=== PATIENT | female | born 1960 | race Caucasian/White ===

== ENCOUNTER 2018-08-06 20:22 | Emergency (ER) | payer SELFPAY ==
[~2018-08-06] VITALS: Ht 154.9 cm; Wt 81.6 kg
[2018-08-06 20:46] VITALS: BP 160/90
--- NOTE | 2018-08-06 20:48 | NUR ---
TO LOBBY A/W BED , AMBULATORY
--- NOTE | 2018-08-06 21:03 | NUR ---
PT RETURN FROM [facility] TO [facility]
--- NOTE | 2018-08-06 21:05 | NUR ---
PATIENT AMBULATED TO ER CHAIR C.
--- NOTE | 2018-08-06 21:08 | NUR ---
PATIENT IS A 57 Y/O FEMALE WHO PRESENTS TO THE ED C/O R ANKLE PAIN. PT STATES THAT SHE WAS WALKING AND TRIPPED OVER A BOLT X3 DAYS [employer]. PT REPORTS 5/10 ACHING R ANKLE PAIN THAT RADIATES UP THE R LEG. NOTED SWELLING, CMS INTACT, NO OBVIOUS TRAUMA/DEFORMITY. PT TOOK MOTRIN. PT DENIES CP, SOB, N/V/D. PT AWAKE AND ALERT, RR EVEN/UNLABORED. PT REPOSITIONED FOR COMFORT, BED IN LOWEST POSITION. ER PROVIDER NOTIFIED. WILL CONTINUE TO MONITOR.
[2018-08-06 21:37] VITALS: BP 152/82
--- NOTE | 2018-08-06 21:37 | NUR ---
Patient discharged with v/s stable. Written and verbal after care instructions given and explained. Patient alert, oriented and verbalized understanding of instructions. Ambulatory with steady gait. All questions addressed prior to discharge. ID band removed. Patient advised to follow up with PMD. Rx of ACETAMINOPHEN 500MG AND NAPROXEN 375MG given. Patient educated on indication of medication including possible reaction and side effects. Opportunity to ask questions provided and answered.
== END 2018-08-06 21:37 | disposition home or self-care (01) ==
LOC: MED 20:22
DX: S86.811A Strain of other muscle(s) and tendon(s) at lower leg level, right leg, initial encounter (principal); E11.9 Type 2 diabetes mellitus without complications; I10 Essential (primary) hypertension; W01.0XXA Fall on same level from slipping, tripping and stumbling without subsequent striking against object, initial encounter; Y93.89 Activity, other specified; Y92.89 Other specified places as the place of occurrence of the external cause; Y99.8 Other external cause status
CPT/HCPCS: 73610; 99283

== ENCOUNTER 2019-04-18 23:11 | Emergency (ER) | payer MEDICAID ==
[~2019-04-18] VITALS: Ht 154.9 cm; Wt 86.2 kg
[2019-04-18 23:12] VITALS: BP 187/99
--- NOTE | 2019-04-18 23:15 | NUR ---
TO LOBBY A/W BED AMBULATORY
--- NOTE | 2019-04-18 23:23 | NUR ---
EKG PERFORMED IN TRIAGE ROOM WITH FAMILY MEMBER PRESENT
--- NOTE | 2019-04-18 23:50 | NUR ---
PT AMBULATED TO BED #7
[2019-04-19] MEDS ORDERED: NITROGLYCERIN 0.4 MG TAB SL ONE
[2019-04-19] MEDS ORDERED: ASPIRIN 325 MG TAB PO ONE
--- NOTE | 2019-04-19 00:04 | NUR ---
BIBS C/O NEW ONSET OF DULL CHEST PAIN 6/10 BEGINNING THIS MORNING, PATIENT DENIES INJURY. SOB. LUNG SOUNDS CLEAR BILAT LOBES, NO ACCESSORY MUSCLE USE, PT RESP PATTERN WNL. PT REPORTS TO DRINK CAFFEINE DAILY. SMOKER, 10 CIGARETTES A DAY X 40 YEARS NO PMH NKA
--- NOTE | 2019-04-19 00:05 | NUR ---
XRAY AT BEDSIDE
[2019-04-19] MEDS ORDERED: ASPIRIN 81 MG TAB.CHEW PO ONE (00:10)
--- NOTE | 2019-04-19 00:10 | NUR ---
PER MD CHAN, VERBAL ORDER TO SWITCH ASP 325 ORAL TO ASP 324 CHEWABLE TAB.
--- NOTE | 2019-04-19 00:12 | NUR ---
PER DR CHAN, EKG RE ORDER WAS NOT NEEDED.
[2019-04-19 00:43] LABS: BASOPHILS # (AUTO) 0.1 K/uL (0.00-0.22); BASOPHILS % (AUTO) 1.1 % (0.0-2.0); EOSINOPHILS # (AUTO) 0.2 K/uL (0-0.4); EOSINOPHILS % (AUTO) 2.4 % (0.0-4.0); HEMATOCRIT 47.8 % (36-48); HEMOGLOBIN 16.2 g/dL (12.0-16.0); LYMPHOCYTES # (AUTO) 4.7 K/uL (2.5-16.5); LYMPHOCYTES % (AUTO) 44.9 % (20.5-51.1); MEAN CORPUSCULAR HEMOGLOBIN 30 pg (27-31); MEAN CORPUSCULAR HGB CONC 34 g/dL (33-37); MEAN CORPUSCULAR VOLUME 88.9 fL (80-94); MONOCYTES # (AUTO) 0.7 K/uL (0.8-1.0); MONOCYTES % (AUTO) 6.3 % (1.7-9.3); NEUTROPHILS # (AUTO) 4.7 K/uL (1.8-7.7); NEUTROPHILS % (AUTO) 45.3 % (42.2-75.2); PLATELET COUNT (AUTO) 303 K/uL (140-450); RED BLOOD CELL COUNT(AUTO) 5.37 MIL/uL (4.20-5.40); RED CELL DISTRIBUTION WIDTH 13.4 % (11.6-13.7); WHITE BLOOD COUNT (AUTO) 10.4 K/uL (4.8-10.8)
[2019-04-19 01:04] LABS: ANION GAP 15.6 (8-16); CREATININE 0.6 mg/dL (0.6-1.3); POTASSIUM 3.6 mmol/L (3.5-5.1)
[2019-04-19 01:06] LABS: ALBUMIN 3.7 g/dL (3.4-5.0); TOTAL BILIRUBIN 0.4 mg/dL (0.0-1.0)
[2019-04-19 01:11] LABS: PROTHROMBIN TIME 9.6 secs (10.8-13.4)
--- NOTE | 2019-04-19 01:28 | NUR ---
BEDSIDE REPORT RECIEVED FROM ADILIA KIRKPATRICK. ASSUMED CARE AT THIS TIME.
--- NOTE | 2019-04-19 02:47 | NUR ---
PT REPORTS DECREASED CHEST PAIN, 05/25. DR. CHAN MADE AWARE.
[2019-04-19 02:49] VITALS: BP 136/79
--- NOTE | 2019-04-19 04:00 | NUR ---
DR. CHAN AT BEDSIDE REEVALUTING PT.
--- NOTE | 2019-04-19 04:36 | NUR ---
Patient discharged with v/s stable. Written and verbal after care instructions given and explained. Patient alert, oriented and verbalized understanding of instructions. Ambulatory with steady gait. All questions addressed prior to discharge. ID band removed. Patient advised to follow up with PMD. Rx of PREDNISONE, ALBUTEROL, AND NAPROSYN given. Patient educated on indication of medication including possible reaction and side effects. Opportunity to ask questions provided and answered.
== END 2019-04-19 04:35 | disposition home or self-care (01) ==
LOC: MED 23:11
DX: R07.89 Other chest pain (principal); F41.9 Anxiety disorder, unspecified; M54.9 Dorsalgia, unspecified; F17.210 Nicotine dependence, cigarettes, uncomplicated; Z71.6 Tobacco abuse counseling
CPT/HCPCS: 36415; 71045; 80053; 83880; 84484; 85025; 85610; 85730; 93005; 99284; Q0092

== ENCOUNTER 2021-01-13 11:34 | Emergency (ER) | payer SELFPAY ==
[~2021-01-13] VITALS: Ht 154.9 cm; Wt 77.6 kg
[2021-01-13 11:45] VITALS: BP 199/101
--- NOTE | 2021-01-13 12:05 | NUR ---
CAROLINE SCHRADER EXAMINING PT
[2021-01-13] MEDS ORDERED: VALA1TAB39 PO (12:08)
[2021-01-13] MEDS ORDERED: TRAM50TA1 PO (12:08)
--- NOTE | 2021-01-13 12:08 | NUR ---
60 Y/O F BIB SELF FROM HOME, C/O OF RASH (KAYDIA WELLNESS PATCH: FOR PAIN MANAGEMENT) ON AFTER USING PATCH MEDICATION. ALSO C/O SHARP PAIN ON R SIDE THAT STARTED 1 WEEK AGO. DENIES N/V/D. DENIES NEW ONSET OF SOB, COUGH, CP AND FEVERS. PT STATES 8/10 BURNING, ITCHY PAIN. PMH: HTN, DM2, COPD NKA MED: MOTRIN 1 PO AROUND 0700 WITH SOME RELIEF
[2021-01-13 12:13] VITALS: BP 199/101
--- NOTE | 2021-01-13 12:13 | NUR ---
Patient discharged with v/s stable. Written and verbal after care instructions given and explained. Patient alert, oriented and verbalized understanding of instructions. Ambulatory with steady gait. All questions addressed prior to discharge. ID band removed. Patient advised to follow up with PMD. Rx of TRAMADOL AND VALACYCLOVIR given. Patient educated on indication of medication including possible reaction and side effects. Opportunity to ask questions provided and answered.
== END 2021-01-13 12:13 | disposition home or self-care (01) ==
LOC: MED 11:34
DX: B02.9 Zoster without complications (principal)
CPT/HCPCS: 99283

== ENCOUNTER 2021-02-27 07:19 | Emergency (ER) | payer MEDICAID ==
[~2021-02-27] VITALS: Ht 154.9 cm; Wt 74.8 kg
[~2021-02-27 07:19] MED LIST: TRAM50TA1 PO; VALA1TAB39 PO
[2021-02-27 07:22] VITALS: BP 151/75
--- NOTE | 2021-02-27 07:25 | NUR ---
Patient ambulated to bed 11 with steady/even gait.
--- NOTE | 2021-02-27 07:30 | NUR ---
Dr. Eldridge is evaluating pt at bedside
--- NOTE | 2021-02-27 07:30 | NUR ---
60 y/o F BIB self from home c/o R side pain/numbness x 1 week. Patient A&Ox4, ambulatory, states diagnosed with shingles in January and feels it "acting up - progressively worsening." Pt states 01/22, numbness/constant, radiating to lower back. Rash noted with no bleeding or drainage. Reports Motrin at 0200 with minor relief to pain. Bed locked in lowest position, side rails x 1. PMH: HTN, COPD NKA MED: 2AM MOTRIN, NON COMPLIANT WITH HTN MEDS
[2021-02-27] MEDS ORDERED: GABA300C PO (07:39)
[2021-02-27] MEDS ORDERED: ACET-8386 PO (07:39)
--- NOTE | 2021-02-27 07:42 | NUR ---
Dr. Eldridge is reevaluating patient at bedside
--- NOTE | 2021-02-27 07:45 | NUR ---
Patient discharged with v/s stable. Written and verbal after care instructions given and explained. Patient alert, oriented and verbalized understanding of instructions. Ambulatory with steady gait. All questions addressed prior to discharge. ID band removed. Patient advised to follow up with PMD. Rx of Hydrocodone/Acetaminophen, Gabapentin given. Patient educated on indication of medication including possible reaction and side effects. Opportunity to ask questions provided and answered.
== END 2021-02-27 07:45 | disposition home or self-care (01) ==
LOC: MED 07:19
DX: B02.29 Other postherpetic nervous system involvement (principal); M54.50 Low back pain, unspecified; J44.9 Chronic obstructive pulmonary disease, unspecified; E11.9 Type 2 diabetes mellitus without complications; I10 Essential (primary) hypertension; F17.210 Nicotine dependence, cigarettes, uncomplicated; Z90.49 Acquired absence of other specified parts of digestive tract; Z79.899 Other long term (current) drug therapy; Z71.6 Tobacco abuse counseling
CPT/HCPCS: 99283